=== PATIENT | female | born 1955 | race Caucasian/White ===

== ENCOUNTER → 2016-10-09 | Outpatient (CLI) | payer BC ==
[2016-10-09 11:31] VITALS: BMI 41.5
== END | disposition home or self-care (01) ==
LOC: MNTWWP 11:00
PROVIDERS: ATTEND Family Medicine
DX: E66.9 Obesity, unspecified (principal); Z68.41 Body mass index [BMI] 40.0-44.9, adult; Z87.891 Personal history of nicotine dependence

== ENCOUNTER → 2017-03-19 | Outpatient (CLI) | payer BC ==
[2017-03-19 13:16] LABS: ALT 41 U/L (9-52); AST 23 U/L (14-36); Alkaline Phosphatase 64 U/L (38-126); Anion Gap 11 mmol/L; Blood Urea Nitrogen 18 mg/dL (7-17); Calcium 9.8 mg/dL (8.4-10.2); Carbon Dioxide 28 mmol/L (22-30); Chloride 104 mmol/L (98-107); Glucose 99 mg/dL (74-99); Non-African American GFR(MDRD) >60 (>60 ml/min/1.73 sqM); Potassium 4.3 mmol/L (3.5-5.1); Sodium 143 mmol/L (137-145); Total Bilirubin 0.8 mg/dL (0.2-1.3); Total Protein 7.4 g/dL (6.3-8.2)
== END | disposition home or self-care (01) ==
LOC: LABWHC1 12:31
PROVIDERS: ATTEND Internal Medicine Gastroenterology
DX: K76.0 Fatty (change of) liver, not elsewhere classified (principal)
CPT/HCPCS: 36415; 80053

== ENCOUNTER 2018-03-31 08:41 | Day surgery (SDC) | payer BC ==
[2018-03-27 08:56] VITALS: BMI 45.3
[~2018-03-31 08:41] MED LIST: LACTATED RINGERS 1,000 ML IV SCH; LIDOCAINE 1% 20 ML VIAL (10MG/ML) FOR IV START INTRADERMA PRN
[2018-03-31 08:56] VITALS: TEMP 97.9
[2018-03-31] MEDS ORDERED: LACTATED RINGERS 1,000 ML IV ONE (08:56)
[2018-03-31 09:03] LABS: Glucose,Whole Blood 135 mg/dL (75-99)
[2018-03-31] MEDS ORDERED: MIDAZOLAM 2 MG/2 ML VIAL ONE (09:53)
[2018-03-31] MEDS ORDERED: fentaNYL (PF) 50 MCG/ML 2 ML AMP ONE (09:53)
[2018-03-31] MEDS ORDERED: PROPOFOL 10 MG/ML 20 ML VIAL IV ONE (09:53)
--- NOTE | 2018-03-31 09:58 | P.GSHP ---
History of Present Illness H&P Date: 03/31/18 Chief Complaint: Screening colonoscopy This is a 62-year-old female who presents today for screening colonoscopy. Patient denies any significant GI complaints. Past Medical History Past Medical History: Diabetes Mellitus, Eye Disorder, GERD/Reflux, Hearing Disorder / Deafness, Hyperlipidemia, Hypertension Additional Past Medical History / Comment(s): HX FREQ UTI, TAKES OTC RX FOR PREVENTION. HIATAL HERNIA. HEARING LOSS LT EAR; RINGING IN SANTIAGO EARS W/ FREQ OM SANTIAGO. DIZZINESS, BEGINNING OF GLAUCOMA History of Any Multi-Drug Resistant Organisms: None Reported Past Surgical History: Appendectomy, Cardiac Ablation, Cholecystectomy, Hysterectomy, Orthopedic Surgery Additional Past Surgical History / Comment(s): Cardiac Ablation 2001 for Tachycardia. ORIF LT ankle, LT toe surgery w/ Pins. EGD 12/2014. COLONOSCOPY, SX FOR ENDOMETRIOSIS, TUBES IN BILAT EARS Past Anesthesia/Blood Transfusion Reactions: Family History of Problems w/ Anesthesia, Postoperative Nausea & Vomiting (PONV) Additional Past Anesthesia/Blood Transfusion Reaction / Comment(s): BENNIE HAD PONV. Smoking Status: Former smoker - Past Family History Father Family Medical History: Cancer Additional Family Medical History / Comment(s): prostate cancer Mother Family Medical History: Diabetes Mellitus, Hypertension Medications and Allergies Home Medications Medication Instructions Recorded Confirmed Type Omeprazole 20 mg PO Q48H 05/20/15 03/27/18 History Bimatoprost [Lumigan .01% Ophth 1 drop BOTH EYES MOWEFR 07/19/16 03/27/18 History Soln] Cholecalciferol [Vitamin D3] 1,000 unit PO DAILY 07/19/16 03/27/18 History Cranberry With D-Mannose 1,000 mg PO DAILY 07/19/16 03/27/18 History Losartan [Cozaar] 25 mg PO DAILY 07/19/16 03/27/18 History Multivitamin (No Iron) 1 tab PO DAILY 07/19/16 03/27/18 History amLODIPine [Norvasc] 5 mg PO DAILY #21 tab 07/19/16 03/27/18 Rx Meclizine [Antivert] 25 mg PO BID 03/27/18 03/27/18 History Propylene Glycol/Peg 400/Pf 1 dropper BOTH EYES DAILY 03/27/18 03/27/18 History [Systane 0.3-0.4% Eye Drops] metFORMIN HCL [Glucophage] 500 mg PO PC-SUPPER 03/27/18 03/27/18 History Allergies Allergy/AdvReac Type Severity Reaction Status Date / Time fluconazole Allergy Rash/Hives Verified 03/27/18 08:48 iodine Allergy Rash/Hives Verified 03/27/18 08:48 levofloxacin [From Levaquin] Allergy Rash/Hives Verified 03/27/18 08:48 nitrofurantoin Allergy Rash/Hives Verified 03/27/18 08:48 [From Macrobid] nitrofurantoin Allergy Rash/Hives Verified 03/27/18 08:48 macrocrystalline [From Macrobid] sulfamethoxazole Allergy Rash/Hives Verified 03/27/18 08:48 [From Bactrim] trimethoprim [From Bactrim] Allergy Rash/Hives Verified 03/27/18 08:48 Surgical - Exam Vital Signs Temp Pulse Resp BP Pulse Ox 97.9 F 96 18 146/88 98 03/31/18 08:55 03/31/18 08:55 03/31/18 08:55 03/31/18 08:55 03/31/18 08:55 - General well developed, no distress - Eyes PERRL - ENT normal pinna - Neck no masses - Respiratory normal expansion - Cardiovascular Rhythm: regular - Abdomen Abdomen: soft, non tender Results - Labs Abnormal Lab Results - Last 24 Hours (Table) 03/31/18 Range/Units 09:01 POC Glucose (mg/dL) 135 H (75-99) mg/dL Assessment and Plan Assessment: We'll perform screening colonoscopy.
--- NOTE | 2018-03-31 10:13 | P.OP ---
Date of Procedure: 03/31/18 Preoperative Diagnosis: Screening colonoscopy Postoperative Diagnosis: Incomplete colonoscopy Procedure(s) Performed: Colonoscopy Anesthesia: MAC Surgeon: Nuno Brown Pathology: none sent Condition: stable Disposition: PACU Description of Procedure: The patient's placed on the endoscopy table in the lateral position. She received IV sedation. Digital rectal exam was performed which revealed no abnormalities. Using the pediatrics colonoscope the scope was placed in the anus and passed throughout the colon. The scope could not be passed in the transverse colon secondary tortuosity of the bowel. The scope was withdrawn. There was a few scattered diverticula. Scope was then brought back into the rectum and this appeared normal. Scope withdrawn for patient.
[2018-03-31 10:17] VITALS: RESP 16
[2018-03-31 10:25] VITALS: BP 127/67; PULSE 77
--- NOTE | 2018-03-31 12:56 | FL ---
EXAMINATION TYPE: FL barium enema w air contrast DATE OF EXAM: 03/31/2018 COMPARISON: NONE HISTORY: Failed colonoscopy TECHNIQUE: A single contrast barium enema study is performed. FINDINGS: Supervisor Mending view of the abdomen shows overall non-obstructive bowel gas pattern. 2.46 minutes of fluoroscopy utilized and 41 images obtained. There is some redundancy of the sigmoid colon with tiny diverticula noted. No annular constricting le idalia or obstruction identified. No definite filling defects or polypoid lesions identified. There is some limitation with regard to t he right colon due to redundancy. IMPRESSION: 1. A tiny diverticular changes involving the sigmoid colon with no evidence of obstructing lesion or annular constriction.
== END 2018-03-31 10:50 | disposition home or self-care (01) ==
LOC: ORWHC2ENDO 08:41
PROVIDERS: ATTEND Surgery
DX: Z12.11 Encounter for screening for malignant neoplasm of colon (principal); Q43.8 Other specified congenital malformations of intestine; K57.30 Diverticulosis of large intestine without perforation or abscess without bleeding; E11.9 Type 2 diabetes mellitus without complications; H40.9 Unspecified glaucoma; K21.9 Gastro-esophageal reflux disease without esophagitis; H91.92 Unspecified hearing loss, left ear; E78.5 Hyperlipidemia, unspecified; I10 Essential (primary) hypertension; Z79.84 Long term (current) use of oral hypoglycemic drugs; Z79.899 Other long term (current) drug therapy; Z88.1 Allergy status to other antibiotic agents; Z88.2 Allergy status to sulfonamides; Z88.8 Allergy status to other drugs, medicaments and biological substances; Z91.09 Other allergy status, other than to drugs and biological substances; Z90.49 Acquired absence of other specified parts of digestive tract; Z90.710 Acquired absence of both cervix and uterus; Z87.440 Personal history of urinary (tract) infections; Z87.891 Personal history of nicotine dependence
CPT/HCPCS: 74280; J2250; J3010; J2704; G0121; 45378

== ENCOUNTER → 2018-04-18 | Outpatient (CLI) | payer BC ==
--- NOTE | 2018-04-22 13:23 | MM ---
Reason for exam: screening (asymptomatic). Last mammogram was performed 1 year and 8 months ago. History: Patient is postmenopausal. Family history of breast cancer in maternal aunt at age 70. Took estrogen for 7 years beginning at age 43. Physical Findings: A clinical breast exam by your physician is recommended on an annual basis and results should be correlated with mammographic findings. MG Screening Mammo w CAD Bilateral CC and MLO view(s) were taken. Prior study comparison: August 29, 2016, bilateral MG screening mammo w CAD. May 15, 2013, bilateral digital screening mammo w/CAD. There are scattered fibroglandular densities. There is no discrete abnormality. ASSESSMENT: Negative, BI-RAD 1 RECOMMENDATION: Routine screening mammogram of both breasts in 1 year.
== END | disposition home or self-care (01) ==
LOC: RADMAMWWP 11:28
PROVIDERS: ATTEND Family Medicine
DX: Z12.31 Encounter for screening mammogram for malignant neoplasm of breast (principal)
CPT/HCPCS: 77067

== ENCOUNTER → 2018-10-23 | Outpatient (CLI) | payer MEDICARE, BC ==
--- NOTE | 2018-10-23 14:18 | MR ---
EXAMINATION TYPE: MR shoulder RT wo con DATE OF EXAM: 10/23/2018 1:55 PM COMPARISON: NONE HISTORY: Right shoulder pain TECHNIQUE: Multiplanar multispin echo imaging of the right shoulder was performed. 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 There is no complete or bursal/articular sided partial rotator cuff tear. The subsc apularis constituent of the rotator cuff is intact. Calcific tendinopathy supraspinatus tendon. Bursa: No bursal effusion or thickening is seen. Musculature: There is no muscular tear, contusion, or atrophy. Acromioclavicular joint : There are moderate degenerative changes of the acromioclavicular joint. Th ere is no anterior or lateral acromial downsloping. Osseous structures : There are no fractures or regions of abnormal bone marrow signal intensity. Long biceps tendon : The biceps tendon is normally situated within the bicipital groove. No complete or partial biceps tendon tear is present. Glenohumeral Joint fluid : There is no glenohumeral joint effusion. Cartilage and Bone : No focal hyaline cartilage defects are noted. No Hill-Sachs, reverse Hill-Sachs, or bony Bankart lesions are seen. Labrum : There are no SLAP or soft tissue Bankart lesions. No paralabral cysts are seen. OTHER FINDINGS : none IMPRESSION: 1. Chronic tendinopathy supraspinatus tendon with calcific changes noted as well. No evidence for par tial or full-thickness tear.
== END ==
LOC: RADMRIMAIN 13:03
PROVIDERS: ATTEND Orthopaedic Surgery
DX: M75.81 Other shoulder lesions, right shoulder (principal)

== ENCOUNTER 2018-12-25 06:06 | Day surgery (SDC) | payer MEDICARE, BC ==
[2018-12-22 15:47] VITALS: BMI 47.2
--- NOTE | 2018-12-24 15:14 | HP ---
HISTORY AND PHYSICAL DATE OF SERVICE: 12/25/2018 Erlinda Munoz is a 63-year-old patient seen with progressive right shoulder pain. We discussed treatment options. She elected to proceed with arthroscopy. Consent regarding the procedure was obtained. Medical clearance was obtained by Dr. Mustafa. PAST MEDICAL HISTORY: [id number] diabetes, hypertension, gastroesophageal reflux disease. PAST SURGICAL HISTORY: Ankle surgery, appendectomy, cholecystectomy, hysterectomy. MEDICATIONS: Amlodipine, losartan, Meclizine, metformin, Prilosec. ALLERGIES: BACTRIM, MACROBID, LEVAQUIN, FLUCONAZOLE. SOCIAL HISTORY: She denies tobacco use. PHYSICAL EVALUATION OF THE RIGHT SHOULDER: Flexion 130 degrees, abduction 110 degrees, external rotation is 30 degrees with some weakness. There is tenderness along the anterolateral acromion and rotator cuff insertion site. Impingement is positive at 90 degrees. Distal neurovascular exam is intact. RIGHT SHOULDER RADIOGRAPHS: Revealed a type 2 anterior acromion, acromioclavicular joint osteoarthritis and cystic changes of the greater tuberosity. An MRI of the right shoulder revealed calcific tendinitis as well as acromioclavicular joint osteoarthritis. IMPRESSION: 1. Right shoulder impingement with calcific tendinitis and possible rotator cuff tear. 2. Right shoulder acromioclavicular joint osteoarthritis. PLAN: Right shoulder arthroscopy with subacromial decompression, possible arthroscopic rotator cuff repair, possible Milena procedure and debridement. MMODL / IJN: [id number] /
[~2018-12-25 06:06] MED LIST changes: +DEXAMETHASONE SOD PHOSPHATE 10 MG/ML 1 ML VIAL IV ONE; +HYDROmorphone 0.5 MG/0.5 ML SYRINGE IVP PRN; +MIDAZOLAM (PF) 2 MG/2 ML VIAL IV PRN; +ONDANSETRON 4 MG/2 ML VIAL IVP ONE; +SCOPOLAMINE 1.5MG/72HR PATCH TRANSDERM ONE
[2018-12-25 07:06] LABS: Glucose,Whole Blood 159 mg/dL (75-99)
[2018-12-25] MEDS ORDERED: ceFAZolin 1,000 MG VIAL ONE (08:23)
[2018-12-25] MEDS ORDERED: ROPIVACAINE 5 MG/ML 30 ML VIAL ONE (08:23)
[2018-12-25] MEDS ORDERED: SUCCINYLCHOLINE CHLORIDE 100 MG/5 ML SYR IV ONE (08:23)
[2018-12-25] MEDS ORDERED: LIDOCAINE 1% INJ 10MG/ML (20 ML MDV) ONE (08:23)
[2018-12-25] MEDS ORDERED: MIDAZOLAM 2 MG/2 ML VIAL ONE (08:23)
[2018-12-25] MEDS ORDERED: PROPOFOL 10 MG/ML 20 ML VIAL IV ONE (08:23)
--- NOTE | 2018-12-25 09:59 | P.OP ---
Date of Procedure: 12/25/18 Preoperative Diagnosis: Right shoulder impingement Postoperative Diagnosis: 1. Right shoulder rotator cuff tear 2. Right shoulder impingement 3. Right shoulder acromioclavicular joint osteoarthritis 4. Right shoulder partial long head biceps tendon tear 5. Right shoulder superficial labral tear Procedure(s) Performed: 1. Right shoulder arthroscopic rotator cuff repair 2. Right shoulder arthroscopic subacromial decompression 3. Right shoulder arthroscopic Milena procedure 4. Right shoulder arthroscopic biceps tenotomy 5. Right shoulder arthroscopic debridement labral tear Implants: 14.75 Arthrex swivel lock anchor Anesthesia: GETA, regional (Interscalene block) Surgeon: Kervin Meeks Bulb Filler #1: Hammad Rdz Estimated Blood Loss (ml): 10 Pathology: none sent Condition: stable Disposition: PACU Indications for Procedure: 63-year-old patient seen with progressive right shoulder pain. After treatment options were discussed, she elected to proceed with arthroscopy Operative Findings: see description of procedure Description of Procedure: Patient underwent an interscalene block by department of anesthesia for postoperative management. The patient was then taken to the operative suite. The patient underwent a general anesthetic by the department of anesthesia. The patient was placed into a lateral position and secured. There was appropriate padding of the bony prominence. Right shoulder was then prepped and draped in normal sterile orthopedic fashion. We placed the extremity in 10 pounds of longitudinal traction. A posterior incision was now made for a posterior working portal site. The trocar and cannula were inserted into the glenohumeral joint. Arthroscopy was initiated. Spinal needle was now inserted anteriorly, to asc ertain the anterior working portal site. An incision was now made in that area, a trocar was inserted followed by a probe. There was superficial tearing of the superior labrum. There was partial tearing and hyperemia long head biceps tendon. The remaining labrum appeared stable. There was mild grade 1 chondromalacia changes of the glenoid inferiorly. I performed an arthroscopic biceps tenotomy. I debrided the superficial labral tear down to stable tissue. The residual labrum was stable. Instruments were now removed from the glenohumeral joint. Utilizing the posterior working portal site, the trocar and cannula were inserted into the subacromial space. Arthroscopy initiated. I made an incision 2 fingerbreadths lateral to the acromion. I introduced my trocar followed by my ArthroCare ablator. I now began ablating thick subacromial bursal tissue, which exposed the undersurface of the anterior acromion. There was diminished subacromial space. There was a very prominent anterior acromion. A motorized bur was introduced and a subacromial decompression was performed. I also excised some osteophytes off the inferior aspect of the distal clavicle. The AC joint was visualized and noted to be fairly arthritic. The motorized bur was introduced in the anterior portal site and a Milena procedure was performed without difficulty, decompressing the AC joint nicely. I turned my attention to the rotator cuff. There was a 1 cm rotator cuff tear. I debrided the margins getting down to stable tendon tissue. The defect now measured 1.5 cm. It was freely mobile over the footprint. I abraded the footprint with a motorized bur. With the assistance of Rg BERG we passed 2 everted mattress sutures through good bites of rotator cuff tendon and then repaired the tendon right back to the footprint with 1-4.75 Arthrex swivel lock anchor. All residual suture limbs were now clipped. The repair was probed and found to be stable. We had good compression of the tendon along the entire footprint. I injected 1 mL Renue intra-articular. Instruments now removed from the portal sites. All portal sites were approximated with nylon suture. Sterile dressings were applied followed by a shoulder sling. Hammad BERG assisted in this case. The patient was awakened, transferred to a bed, and taken to recovery in stable condition.
[2018-12-25 10:00] VITALS: TEMP 97
--- NOTE | 2018-12-25 10:00 | P.ONQ ---
Anesthesiology Proc Note - PNB - Peripheral Nerve Block Performed Right Interscalene Single Time Out Performed: Yes Procedure Start Time: Procedure Stop Time: Indication: Acute Post-Operative Pain, Requested by physician Sedation Type: Sedate with meaningful contact maintained Preparation: Sterile Prep Position: Supine Needle Size: 50mm (2") Needle Gauge: 21 Technique: Ultrasound Injectate: 0.5% Ropivacaine (see comment for volume) (ropi .5% 30cc) Blood Aspirated: No Pain Paresthesia on Injection Noted: No Resistance on Injection: Normal Events: Uneventful and Well Tolerated
[2018-12-25 10:08] LABS: Glucose,Whole Blood 212 mg/dL (75-99)
[2018-12-25 11:20] VITALS: RESP 18
[2018-12-25 12:06] VITALS: BP 176/70; PULSE 80
== END 2018-12-25 12:08 | disposition home or self-care (01) ==
LOC: OR 06:06
PROVIDERS: ATTEND Orthopaedic Surgery
DX: M75.101 Unspecified rotator cuff tear or rupture of right shoulder, not specified as traumatic (principal); M75.41 Impingement syndrome of right shoulder; M19.011 Primary osteoarthritis, right shoulder; S46.111A Strain of muscle, fascia and tendon of long head of biceps, right arm, initial encounter; S43.431A Superior glenoid labrum lesion of right shoulder, initial encounter; X58.XXXA Exposure to other specified factors, initial encounter; M94.211 Chondromalacia, right shoulder; M25.711 Osteophyte, right shoulder; I10 Essential (primary) hypertension; E78.5 Hyperlipidemia, unspecified; Z87.891 Personal history of nicotine dependence; K21.9 Gastro-esophageal reflux disease without esophagitis; E11.9 Type 2 diabetes mellitus without complications; R42 Dizziness and giddiness; H91.90 Unspecified hearing loss, unspecified ear; Z91.048 Other nonmedicinal substance allergy status; Z79.84 Long term (current) use of oral hypoglycemic drugs; Z79.899 Other long term (current) drug therapy; Z88.1 Allergy status to other antibiotic agents; Z88.2 Allergy status to sulfonamides; Z88.8 Allergy status to other drugs, medicaments and biological substances; Z88.3 Allergy status to other anti-infective agents
CPT/HCPCS: 64415; 29826; 29827; 29824; C1713; C1765; J2250 ×2; J1100; J2405; J0690; J2001; J2795; J0330; J2704

== ENCOUNTER → 2020-12-22 | Outpatient (CLI) | payer MEDICARE, BC ==
--- NOTE | 2020-12-22 15:39 | NM ---
EXAMINATION TYPE: NM stress cardiolite complete DATE OF EXAM: 12/22/2020 COMPARISON: Prior cardiac stress study November 18, 2014 HISTORY: History of hypertension and prior tobacco use with chest pain TECHNIQUE: After the intravenous administration of 9.2 mCi Tc 99m Sestamibi - Rest images obtained 7 5 minutes post injection. The patient exercised using a ELVIE protocol and 1 minute prior to peak e xercise was injected with 24 mCi Tc 99m Sestamibi - Stress images obtained 15 minutes post injection. FINDINGS: Targeted heart rate was achieved during performance of the study. Review of stress and rest SPECT jim ges demonstrates no distinct perfusion abnormality. Gated analysis shows normal wall motion with an estimated left ventricular ejection fraction of 68 %. IMPRESSION: No scintigraphic evidence for reversible ischemia, no significant change from prior studies.
== END | disposition home or self-care (01) ==
LOC: RADNMMAIN 07:49
PROVIDERS: ATTEND Family Medicine
DX: I10 Essential (primary) hypertension (principal); R07.9 Chest pain, unspecified; Z87.891 Personal history of nicotine dependence
CPT/HCPCS: 93017; 78452; A9500

== ENCOUNTER 2021-02-23 11:50 | Day surgery (SDC) | payer MEDICARE, BC ==
[2021-02-21 11:33] VITALS: BMI 47.2
--- NOTE | 2021-02-22 15:43 | HP ---
HISTORY AND PHYSICAL DATE OF SURGERY: 02/23/2021 Erlinda Munoz is a 65-year-old patient seen with symptomatic right wrist ganglion cyst. We discussed surgical excision. She is agreeable. Consent was obtained. PAST MEDICAL HISTORY: Gpx-cfceriz-ohuysccsm diabetes, hypertension, hyperlipidemia. PAST SURGICAL HISTORY: Ankle surgery, cholecystectomy, hysterectomy, shoulder arthroscopy, foot surgery. DAILY MEDICATIONS: Amlodipine, losartan, metformin, Prilosec. ALLERGIES: BACTRIM, MACROBID, LEVAQUIN and FLUCONAZOLE. SOCIAL HISTORY: She denies tobacco use. PHYSICAL EXAMINATION OF RIGHT WRIST: There is a 3 x 2 cm raised 1 cm dorsal ganglion cyst. Mildly tender to palpation. No evidence for erythema, hyperemia, or infective process. Range of motion of the wrist is adequate. There is a good radial pulse and good perfusion sensation distally. RADIOGRAPHS: Radiographs of the wrist reveals some osteoarthritic changes. IMPRESSION: 1. Right wrist dorsal ganglion cyst. 2. Hypertension. 3. Dcj-uqbkfun-wywpwmubm diabetes. PLAN: Right wrist excision ganglion cyst. MMODL / IJN: [id number] /
[~2021-02-23 11:50] MED LIST changes: -DEXAMETHASONE SOD PHOSPHATE 10 MG/ML 1 ML VIAL IV ONE; -HYDROmorphone 0.5 MG/0.5 ML SYRINGE IVP PRN; -LIDOCAINE 1% 20 ML VIAL (10MG/ML) FOR IV START INTRADERMA PRN; -MIDAZOLAM (PF) 2 MG/2 ML VIAL IV PRN; -ONDANSETRON 4 MG/2 ML VIAL IVP ONE; -SCOPOLAMINE 1.5MG/72HR PATCH TRANSDERM ONE
[2021-02-23] MEDS ORDERED: ONDANSETRON 4 MG/2 ML VIAL ONE (12:52)
[2021-02-23] MEDS ORDERED: ONDANSETRON 4 MG/2 ML VIAL IVP ONE (12:57)
[2021-02-23] MEDS ORDERED: DEXAMETHASONE SOD PHOSPHATE 4 MG/ML 1 ML VIAL IV ONE (12:57)
[2021-02-23] MEDS ORDERED: SCOPOLAMINE 1.5MG/72HR PATCH TRANSDERM ONE (12:58)
[2021-02-23 13:02] LABS: Glucose,Whole Blood 165 mg/dL (75-99)
[2021-02-23] MEDS ORDERED: MIDAZOLAM 2 MG/2 ML VIAL ONE (13:15)
[2021-02-23] MEDS ORDERED: fentaNYL (PF) 50 MCG/ML 2 ML AMP ONE (13:15)
[2021-02-23] MEDS ORDERED: PROPOFOL 10 MG/ML 20 ML VIAL IV ONE (13:15)
[2021-02-23] MEDS ORDERED: LIDOCAINE 1% INJ 10MG/ML (20 ML MDV) ONE (13:15)
[2021-02-23] MEDS ORDERED: GLYCOPYRROLATE 0.2 MG/ML 2 ML VIAL ONE (13:15)
[2021-02-23] MEDS ORDERED: BUPIVACAINE (PF) 0.25% 30 ML VIAL SQ ONE ×2 (13:33→13:43)
[2021-02-23 13:54] VITALS: TEMP 96.8
--- NOTE | 2021-02-23 13:54 | P.OP ---
Date of Procedure: 02/23/21 Preoperative Diagnosis: Right wrist dorsal ganglion cyst Postoperative Diagnosis: Right wrist dorsal ganglion cyst measuring 3 cm x 1 cm and raised 1.5 cm Procedure(s) Performed: Excision ganglion cyst right dorsal wrist Anesthesia: HAKAN local Surgeon: Kervin Meeks Estimated Blood Loss (ml): 3 Pathology: other (Ganglion cyst) Condition: stable Disposition: PACU Indications for Procedure: 65-year-old patient seen with symptomatic right wrist dorsal ganglion cyst. After treatment options were discussed, she elected to proceed with excision of her symptomatic ganglion cyst. Operative Findings: See description of procedure Description of Procedure: Patient was taken to the operative suite. She received preoperative IV antibiotics. She underwent a general anesthetic by the department of anesthesia. A well-padded tourniquet was placed along the proximal right upper extremity. The right upper extremity was prepped and draped in the normal sterilefashion. The extremity was elevated and the tourniquet was insufflated to 250. I made a longitudinal incision measuring approximately 3 cm along the dorsal ulnar aspect of the wrist over the ganglion cyst. I carefully dissected down to the ganglion cyst. This is was identified. The measured approximate 3 cm in length by 1 cm in width and raised approximately 1.5 cm. I carefully now dissected around the cyst getting down to the base which was essentially along the dorsal aspect of the DRUJ. This is was now removed without difficulty. The area was evaluated and found to be stable. The DRUJ was stable. Wound was irrigated. Some hemostasis was achieved via electrocautery. The skin margins are approximate nylon suture. Sterile dressings were applied. The tourniquet was now released with immediate capillary refill noted. The patient was awaken ed and transferred to a bed and recovery stable condition.
[2021-02-23 14:09] VITALS: RESP 16
[2021-02-23 14:13] LABS: Glucose,Whole Blood 165 mg/dL (75-99)
[2021-02-23 14:41] VITALS: BP 127/79; PULSE 77
== END 2021-02-23 15:00 | disposition home or self-care (01) ==
LOC: OR 11:50
PROVIDERS: ATTEND Orthopaedic Surgery
DX: M67.431 Ganglion, right wrist (principal); E11.9 Type 2 diabetes mellitus without complications; I10 Essential (primary) hypertension; E78.5 Hyperlipidemia, unspecified; Z79.84 Long term (current) use of oral hypoglycemic drugs; Z79.899 Other long term (current) drug therapy; Z88.1 Allergy status to other antibiotic agents; Z88.3 Allergy status to other anti-infective agents; Z88.2 Allergy status to sulfonamides; Z91.041 Radiographic dye allergy status
CPT/HCPCS: 88304; 25111; J2250; J1100; J0690; J2405; J2001; J3010; J2704

== ENCOUNTER → 2021-10-23 | Outpatient (CLI) | payer MEDICARE ==
--- NOTE | 2021-10-25 11:00 | MM ---
Reason for exam: screening (asymptomatic). Last mammogram was performed 3 years and 6 months ago. History: Patient is postmenopausal. Family history of breast cancer in maternal aunt at age 70. Took estrogen for 7 years beginning at age 43. Physical Findings: A clinical breast exam by your physician is recommended on an annual basis and results should be correlated with mammographic findings. MG 3D Screening Mammo W/Cad Bilateral CC and MLO view(s) were taken. Prior study comparison: April 18, 2018, bilateral MG screening mammo w CAD. August 29, 2016, bilateral MG screening mammo w CAD. There are scattered fibroglandular densities. No significant changes when compared with prior studies. ASSESSMENT: Negative, BI-RAD 1 RECOMMENDATION: Routine screening mammogram of both breasts in 1 year.
== END | disposition home or self-care (01) ==
LOC: RADMAMWWP 12:30
PROVIDERS: ATTEND Family Medicine
DX: Z12.31 Encounter for screening mammogram for malignant neoplasm of breast (principal); Z78.0 Asymptomatic menopausal state; Z80.3 Family history of malignant neoplasm of breast
CPT/HCPCS: 77063; 77067

== ENCOUNTER → 2022-05-03 | Outpatient (CLI) | payer MEDICARE ==
--- NOTE | 2022-05-03 15:16 | XR ---
EXAMINATION TYPE: XR ribs LT w pa chest xray DATE OF EXAM: 05/03/2022 CLINICAL HISTORY: Chest and left-sided rib pain. TECHNIQUE: Single frontal view of the chest is obtained. A frontal and oblique images left-sided ribs . COMPARISON: Chest x-ray 2014 FINDINGS: There is no suspicious new focal air space opacity, pleural effusion, or pneumothorax seen . The cardiac silhouette size is within normal limits. The osseous structures are intact. Dedicated images of the left-sided ribs show no acute displaced fracture. No suspicious focal destruc tive or expansile rib lesion is seen. Overlying soft tissue is unremarkable. IMPRESSION: 1. No acute cardiopulmonary process. 2. No acute displaced left-sided rib fracture.
== END | disposition home or self-care (01) ==
LOC: RADXRMAIN 14:00
PROVIDERS: ATTEND Family Medicine
DX: R07.82 Intercostal pain (principal)

== ENCOUNTER → 2023-10-25 | Outpatient (CLI) | payer MEDICARE ==
--- NOTE | 2023-10-28 14:09 | MM ---
Reason for Exam: Screening (asymptomatic). Last screening mammogram was performed 12 month(s) ago. Patient History: Menarche at age 12. First Full-Term at age 26. Left ovary removed at age 33. Hysterectomy at age 33. Postmenopausal. Estrogen, starting at age 43 for 7 years. Maternal aunt had breast cancer, age 70. Maternal aunt had ovarian cancer, age 55. Risk Values: Shelley 5 year model risk: 1.7%. NCI Lifetime model risk: 5.1%. Prior Study Comparison: 04/18/2018 Bilateral Screening Mammogram, [facility]. 10/23/2021 Bilateral Screening Mammogram, [facility]. 10/24/2022 Bilateral MG 3D screening mammo w/cad, [facility]. Tissue Density: There are scattered fibroglandular densities. Findings: Analyzed By CAD. There is no suspicious group of microcalcifications or new suspicious mass. Overall Assessment: Negative, BI-RAD 1 Management: Screening Mammogram of both breasts in [address] [facility] will attempt to contact patient to return for supplemental views and ultrasound if indicated. Patient should continue monthly self-breast exams. A clinical breast exam by your physician is recommended on an annual basis. This exam should not preclude additional follow-up of suspicious palpable abnormalities. Note on Shelley scores and lifetime risk: 1. A Shelley score greater than 3% is considered moderate risk. If this is the case, consider specialist referral to assess eligibility for a risk reducing agent. 2. If overall lifetime risk for the development of breast cancer is 20% or higher, the patient may qualify for future screening with alternating mammogram and breast MRI. Electronically signed and approved by: Husam Mckee DO
== END | disposition home or self-care (01) ==
LOC: RADMAMWWP 13:18
PROVIDERS: ATTEND Family Medicine
DX: Z12.31 Encounter for screening mammogram for malignant neoplasm of breast (principal); Z80.3 Family history of malignant neoplasm of breast; Z78.0 Asymptomatic menopausal state
CPT/HCPCS: 77063; 77067

== ENCOUNTER → 2024-10-26 | Outpatient (CLI) | payer MEDICARE ==
--- NOTE | 2024-10-26 13:37 | XR ---
EXAMINATION TYPE: XR Hip Bilateral Complete DATE OF EXAM: 10/26/2024 11:14 AM COMPARISON: None. CLINICAL INDICATION: Female, 69 years old with history of Pain/sciatica, pain TECHNIQUE: 2 view(s) obtained each hip. FINDINGS: Femoral heads articulate with the acetabulum. Joint spaces are preserved. No acute fractures or dislo cations evident. Symphysis pubis is unremarkable. Some mild vacuum phenomenon at the sacroiliac joint s may be present. Follow up exams can be performed as clinically indicated IMPRESSION: 1. No acute osseous abnormalities bilateral hips [facility], , 10/26/2024 1:34 PM
--- NOTE | 2024-10-26 13:39 | XR ---
EXAMINATION TYPE: XR lumbar spine 2 or 3V DATE OF EXAM: 10/26/2024 11:14 AM COMPARISON: None. CLINICAL INDICATION: Female, 69 years old with history of R52 pain, pain TECHNIQUE: 3 view(s) obtained. FINDINGS: There are 5 lumbar-type vertebral bodies. Pedicles are intact. There may be some mild narrowing of th e posterior L5-S1 disc height. Remaining disc heights are preserved. Vertebral body heights are prese rved. Minimal spondylosis is present. IMPRESSION: 1. Mild posterior L5-S1 disc space narrowing [facility], , 10/26/2024 1:36 PM
== END | disposition home or self-care (01) ==
LOC: RADXRMAIN 10:50
PROVIDERS: ATTEND Family Medicine
DX: M51.27 Other intervertebral disc displacement, lumbosacral region (principal)
CPT/HCPCS: 72100; 73521

== ENCOUNTER → 2024-11-23 | Outpatient (CLI) | payer MEDICARE ==
--- NOTE | 2024-11-23 09:25 | MM ---
Reason for Exam: Screening (asymptomatic). Last mammogram was performed 1 year(s) and 1 month(s) ago. Patient History: Menarche at age 12. First Full-Term at age 26. Left ovary removed at age 33. Hysterectomy at age 33. Postmenopausal. Estrogen, starting at age 43 for 7 years. Maternal aunt had breast cancer, age 70. Maternal aunt had ovarian cancer, age 55. Risk Values: Shelley 5 year model risk: 1.8%. NCI Lifetime model risk: 4.9%. Prior Study Comparison: 10/23/2021 Bilateral Screening Mammogram, [facility]. 10/24/2022 Bilateral MG 3D screening mammo w/cad, [facility]. 10/25/2023 Bilateral MG 3D screening mammo w/cad, [facility]. Tissue Density: The breasts are heterogeneously dense, which may obscure small masses. Findings: Analyzed By CAD. There is no suspicious group of microcalcifications or new suspicious mass in either breast. Overall Assessment: Benign, BI-RAD 2 Management: Screening Mammogram of both breasts in 1 year. . Patient should continue monthly self-breast exams. A clinical breast exam by your physician is recommended on an annual basis. This exam should not preclude additional follow-up of suspicious palpable abnormalities. Note on Shelley scores and lifetime risk: 1. A Shelley score greater than 3% is considered moderate risk. If this is the case, consider specialist referral to assess eligibility for a risk reducing agent. 2. If overall lifetime risk for the development of breast cancer is 20% or higher, the patient may qualify for future screening with alternating mammogram and breast MRI. [facility], , 11/23/2024 9:22 AM. Electronically signed and approved by: Erick Ramirez M.D. Radiologis
== END | disposition home or self-care (01) ==
LOC: RADMAMWWP 08:44
PROVIDERS: ATTEND Family Medicine
DX: Z12.31 Encounter for screening mammogram for malignant neoplasm of breast (principal); R92.333 Mammographic heterogeneous density, bilateral breasts; Z78.0 Asymptomatic menopausal state; Z80.3 Family history of malignant neoplasm of breast
CPT/HCPCS: 77063; 77067